=== PATIENT | male | born 1945 | race Two or more races ===

== ENCOUNTER 2022-12-29 11:24 | Emergency (ER) | payer OTHER, MEDICAID ==
[~2022-12-29] VITALS: Ht 172.7 cm; Wt 96.0 kg
[2022-12-29 11:50] VITALS: BP 162/101
[2022-12-29] MEDS ORDERED: ACETAMINOPHEN 500 MG TAB PO ONE (12:15)
[2022-12-29] MEDS ORDERED: PRED20TA2 PO (13:14)
[2022-12-29] MEDS ORDERED: ACET-1080 PO (13:14)
== END 2022-12-29 13:20 | disposition home or self-care (01) ==
LOC: ER 11:24
DX: M51.36 Other intervertebral disc degeneration, lumbar region (principal); M54.16 Radiculopathy, lumbar region; I10 Essential (primary) hypertension
CPT/HCPCS: 72131